=== PATIENT | female | born 1985 | race Caucasian/White ===

== ENCOUNTER → 2019-04-25 12:43 | Outpatient (CLI) | payer OTHER, MEDICAID, SELFPAY | PROVIDERS: Family Provider Family Medicine; PCP Family Medicine; Visit Provider Physician Assistant | DX: J02.9 Acute pharyngitis, unspecified (principal) | CPT/HCPCS: 87070 ==

== ENCOUNTER → 2019-05-20 16:23 | Outpatient (ROUT) | payer OTHER, MEDICAID, SELFPAY ==
[2019-05-22 08:41] LABS: COVID19 Sendout Not Detected (Not Detected)
== END ==
PROVIDERS: Family Provider Family Medicine; PCP Family Medicine; Visit Provider Physician Assistant
DX: R05 Cough (principal)
CPT/HCPCS: 87635

== ENCOUNTER 2023-07-04 14:15 | Emergency (ER) | payer OTHER, MEDICAID, SELFPAY ==
[2023-07-04 14:35] VITALS: BP 113/83; PULSE 85; RESP 19; TEMP 36.3; O2SAT 100; BMI 22.4
--- NOTE | 2023-07-04 14:46 | PC.NURSE ---
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 Today pt was feeling depressed, down and took hydroxyzine and cbd resulting in heart palpitations and chest pain with inspiration. Pt reports pain is 4/10 and comes in waves. Nausea comes in waves. Pt is concerned for her heart. HR 83 NSR, on business trainer.
== END 2023-07-04 15:40 | disposition left against medical advice (07) ==
PROVIDERS: Emergency Provider Emergency Medicine; Family Provider Family Medicine; PCP Family Medicine
DX: F31.9 Bipolar disorder, unspecified (principal); R00.2 Palpitations
CPT/HCPCS: 93005; 99282

== ENCOUNTER 2024-07-23 16:41 | Emergency (ER) | payer OTHER, SELFPAY ==
[2024-07-23] VITALS (13 sets, daily range): BP systolic 120–135; BP diastolic 60–88; PULSE 74–96; RESP 16–20; TEMP 37.4; O2SAT 94–100; BMI 23.8
--- NOTE | 2024-07-23 18:00 | ED.RECABL ---
HPI - Recheck/Abnormal Lab/Rx <Jayne Whaley PA-C - Last Filed: 07/23/24 19:23> General Chief Complaint: Recheck/Abnormal Lab/Rx Stated Complaint: pcp ref, high white blood count Time Seen by Provider: 07/23/24 16:59 Source: patient Mode of arrival: Family Vehicle History of Present Illness HPI narrative: Ms. Leal is a pleasant 38-year-old female with a past medical history of cholecystectomy who presents to the emergency department after being sent by urgent Care for white blood cell count of 17.7 in the setting of abdominal pain for appendicitis rule out. Patient states that last Wednesday, she developed fevers, chills, sinus pressure, cough. These symptoms have continued to worsen and she states that she is unable to sleep because her sinus congestion is so severe, she is constantly coughing/throwing up mucus. She also has a persistent productive cough. She feels constantly hot. She is also having lower abdominal pain, worse in the right lower quadrant and diarrhea however she states that ever since having her gallbladder removed she always has upset stomach and diarrhea whenever she is sick. She went to an outpatient urgent care and had COVID and flu testing that was negative, strep swab that was negative, chest x-ray that was negative, appendicitis ultrasound that was unable to visualize the appendix, negative test, and CBC and CMP that were within normal limits except for an elevated white blood cell count of 17.7 with elevation of neutrophils. Because of the leukocytosis in addition to her abdominal pain, she was sent here for further evaluation. Patient believes her symptoms are primarily upper respiratory in nature however her lower abdominal pain is not getting any better despite taking ibuprofen and Tylenol. She is allergic to all opioids. She denies chest pain, shortness of breath, lower extremity swelling, dysuria, ear pain. Related Data Home Medications ?Medication ?Instructions ?Recorded ?Confirmed MELATONIN (#MELATONIN) 1 mg PO PRN ##0 04/07/11 05/20/19 trazodone PO 04/25/19 05/20/19 Previous Rx's ?Medication ?Instructions ?Recorded amoxicillin 875 mg-potassium 1 tab PO BID #20 tabs 07/23/24 clavulanate 125 mg tablet Allergies Allergy/AdvReac Type Severity Reaction Status Date / Time From VICODIN Allergy Severe BREATHING Uncoded 07/23/24 16:51 DIFFICULTY WITH SWELLING From DILAUDID Allergy Mild EVERYTHING Uncoded 07/23/24 16:51 SWELLS UP Review of Systems <Jayne Whaley PA-C - Last Filed: 07/23/24 19:23> Review of Systems ROS Unobtainable: All systems reviewed & are unremarkable except as noted in HPI and below Patient History <Jayne Whaley PA-C - Last Filed: 07/23/24 19:23> Medical History URI (upper respiratory infection) Social History Smoking Status: Current every day smoker Smoking Status: Current every day smoker tobacco type: cigarettes Exam <Jayne Whaley PA-C - Last Filed: 07/23/24 19:23> Narrative Exam Narrative: GENERAL: 38 year old patient appears stated age. Well-developed patient, in no acute distress. HEAD: Atraumatic. Normocephalic. Tenderness to palpation of bilateral maxillary sinuses. EYES: No scleral icterus. No injection or drainage. ENT: Normal pearly bauman TMs bilaterally. Nose without bleeding, purulent drainage. Throat with mild erythema, NO tonsillar hypertrophy or exudate. Airway patent. NECK: Trachea midline. Cervical ROM intact. No palpable cervical lymphadenopathy. CARDIOVASCULAR: Regular rate and rhythm. RESPIRATORY: ?Nonlabored respirations. ?Speaking in clear, full sentences. ?Clear to auscultation. Breath sounds equal bilaterally. No wheezes, rales, or rhonchi. ? GASTROINTESTINAL: Abdomen soft, nondistended. She does have tenderness to palpation of the lower abdomen, most significant in the right lower quadrant. No rebound or guarding. Bowel sounds are present. NEURO: AOx3. ?Clear speech. ?Moves all 4 extremities appropriately. SKIN: No rash or erythema of visible areas Initial Vital Signs Initial Vital Signs: Vital Signs Temperature 99.3 F 07/23/24 16:51 Pulse Rate 89 07/23/24 16:51 Respiratory Rate 18 07/23/24 16:51 Blood Pressure 130/63 07/23/24 16:51 Pulse Oximetry 99 07/23/24 16:51 Oxygen Delivery Method Room Air 07/23/24 16:51 <Rush Carrillo MD - Last Filed: 07/24/24 02:58> Initial Vital Signs Initial Vital Signs: Vital Signs Temperature 99.3 F 07/23/24 16:51 Pulse Rate 89 07/23/24 16:51 Respiratory Rate 18 07/23/24 16:51 Blood Pressure 130/63 07/23/24 16:51 Pulse Oximetry 99 07/23/24 16:51 Oxygen Delivery Method Room Air 07/23/24 16:51 Course <Jayne Whaley PA-C - Last Filed: 07/23/24 19:23> Orders Ordered: ED Orders 07/23/24 18:14 XR chest 2V Stat 07/23/24 18:15 CT abdomen pelvis w con Stat 07/23/24 18:43 Complete Blood Count AUTO DIFF Stat Comprehensive Metabolic Panel Stat Lipase Stat Monotest Stat 07/23/24 19:32 Test Urine Stat Urine Microscopic Stat Discontinued Medications Amoxicillin/Clavulanate Potassium (Amoxicillin/Clav 875/125 Mg) 1 tab PO NOW ONE Stop: 07/23/24 20:17 Last Admin: 07/23/24 20:31 Dose: 1 tab Documented By: DIONICIO Sodium Chloride (Normal Saline 0.9%) 1,000 mls @ 1,000 mls/hr IV BOLUS ONE Stop: 07/23/24 19:14 Last Infusion: 07/23/24 21:09 Dose: Infused Documented By: Admin: 07/23/24 19:09 Dose: 1,000 mls/hr Documented By: MARLEN POTASSIUM CHLORIDE IN WATER (Potassium Cl 10 Meq/100 Ml Francia) 10 meq in 100 mls @ 100 mls/hr IV Q1H RAMONA Stop: 07/23/24 21:29 Last Infusion: 07/23/24 21:05 Dose: Infused Documented By: Admin: 07/23/24 20:32 Dose: 100 mls/hr Documented By: Infusion: 07/23/24 20:32 Dose: Infused Documented By: Admin: 07/23/24 19:40 Dose: 100 mls/hr Documented By: DIONICIO Ketorolac Tromethamine (Ketorolac 30 Mg/Ml Vial) 15 mg IV NOW ONE Stop: 07/23/24 18:15 Last Admin: 07/23/24 19:09 Dose: 15 mg Documented By: MARLEN Ondansetron HCl (Ondansetron 4 Mg/2 Ml Inj) 4 mg IV NOW ONE Stop: 07/23/24 18:15 Last Admin: 07/23/24 19:11 Dose: 4 mg Documented By: MARLEN Potassium Chloride (Potassium Chloride 20 Meq/15 Ml Udc) 40 meq PO NOW ONE Stop: 07/23/24 21:08 Last Admin: 07/23/24 21:16 Dose: Not Given Documented By: MARLEN Vital Signs Vital signs: Vital Signs - 8 hr 07/23/24 19:00 07/23/24 19:17 07/23/24 19:17 Pulse Rate 81 95 H Respiratory Rate Blood Pressure 120/71 Pulse Oximetry 98 98 Oxygen Delivery Method Room Air 07/23/24 19:28 07/23/24 19:28 07/23/24 19:30 Pulse Rate 89 Respiratory Rate Blood Pressure 121/82 125/77 Pulse Oximetry 97 Oxygen Delivery Method 07/23/24 19:30 07/23/24 19:49 07/23/24 19:49 Pulse Rate 85 96 H Respiratory Rate Blood Pressure 130/88 Pulse Oximetry 96 94 Oxygen Delivery Method 07/23/24 20:00 07/23/24 20:00 07/23/24 20:30 Pulse Rate 79 Respiratory Rate 18 Blood Pressure 123/81 135/79 Pulse Oximetry 100 Oxygen Delivery Method 07/23/24 20:30 07/23/24 21:00 07/23/24 21:00 Pulse Rate 79 74 Respiratory Rate 20 19 Blood Pressure 126/60 Pulse Oximetry 100 100 Oxygen Delivery Method <Rush Carrillo MD - Last Filed: 07/24/24 02:58> Orders Ordered: ED Orders 07/23/24 18:14 XR chest 2V Stat 07/23/24 18:15 CT abdomen pelvis w con Stat 07/23/24 18:43 Complete Blood Count AUTO DIFF Stat Comprehensive Metabolic Panel Stat Lipase Stat Monotest Stat 07/23/24 19:32 Test Urine Stat Urine Microscopic Stat Discontinued Medications Amoxicillin/Clavulanate Potassium (Amoxicillin/Clav 875/125 Mg) 1 tab PO NOW ONE Stop: 07/23/24 20:17 Last Admin: 07/23/24 20:31 Dose: 1 tab Documented By: NB Sodium Chloride (Normal Saline 0.9%) 1,000 mls @ 1,000 mls/hr IV BOLUS ONE Stop: 07/23/24 19:14 Last Infusion: 07/23/24 21:09 Dose: Infused Documented By: Admin: 07/23/24 19:09 Dose: 1,000 mls/hr Documented By: MARLEN POTASSIUM CHLORIDE IN WATER (Potassium Cl 10 Meq/100 Ml Francia) 10 meq in 100 mls @ 100 mls/hr IV Q1H RAMONA Stop: 07/23/24 21:29 Last Infusion: 07/23/24 21:05 Dose: Infused Documented By: Admin: 07/23/24 20:32 Dose: 100 mls/hr Documented By: Infusion: 07/23/24 20:32 Dose: Infused Documented By: Admin: 07/23/24 19:40 Dose: 100 mls/hr Documented By: DIONICIO Ketorolac Tromethamine (Ketorolac 30 Mg/Ml Vial) 15 mg IV NOW ONE Stop: 07/23/24 18:15 Last Admin: 07/23/24 19:09 Dose: 15 mg Documented By: MARLEN Ondansetron HCl (Ondansetron 4 Mg/2 Ml Inj) 4 mg IV NOW ONE Stop: 07/23/24 18:15 Last Admin: 07/23/24 19:11 Dose: 4 mg Documented By: MARLEN Potassium Chloride (Potassium Chloride 20 Meq/15 Ml Udc) 40 meq PO NOW ONE Stop: 07/23/24 21:08 Last Admin: 07/23/24 21:16 Dose: Not Given Documented By: MARLEN Vital Signs Vital signs: Vital Signs - 8 hr 07/23/24 19:00 07/23/24 19:17 07/23/24 19:17 Pulse Rate 81 95 H Respiratory Rate Blood Pressure 120/71 Pulse Oximetry 98 98 Oxygen Delivery Method Room Air 07/23/24 19:28 07/23/24 19:28 07/23/24 19:30 Pulse Rate 89 Respiratory Rate Blood Pressure 121/82 125/77 Pulse Oximetry 97 Oxygen Delivery Method 07/23/24 19:30 07/23/24 19:49 07/23/24 19:49 Pulse Rate 85 96 H Respiratory Rate Blood Pressure 130/88 Pulse Oximetry 96 94 Oxygen Delivery Method 07/23/24 20:00 07/23/24 20:00 07/23/24 20:30 Pulse Rate 79 Respiratory Rate 18 Blood Pressure 123/81 135/79 Pulse Oximetry 100 Oxygen Delivery Method 07/23/24 20:30 07/23/24 21:00 07/23/24 21:00 Pulse Rate 79 74 Respiratory Rate 20 19 Blood Pressure 126/60 Pulse Oximetry 100 100 Oxygen Delivery Method MDM - Recheck/Abnormal Lab/Rx <Jayne Whaley PA-C - Last Filed: 07/23/24 19:23> Medical Records Attestation: I reviewed the patient's medical records. Medical records narrative: Reviewed records from today's urgent care visit on patient's cell phone, we are unable to get the formal reports. Lab Data 07/23/24 18:43 07/23/24 18:43 Labs: Lab Results 07/23/24 07/23/24 Range/Units 18:43 19:32 WBC 15.9 H (4.5-11.0) X10^3/uL RBC 5.01 (4.0-5.2) X10^6/uL Hgb 14.7 (12.0-16.0) g/dL Hct 41.4 (36-46) % MCV 82.5 (80-100) fL MCH 29.3 (26-34) PG MCHC 35.5 (30-36) % RDW 13.2 (11.6-14.8) % Plt Count 302 (150-400) X10^3/uL Neut % (Auto) 79.4 H (50-75) % Lymph % (Auto) 14.1 L (25-40) % [place] % (Auto) 5.3 (3-14) % Eos % (Auto) 0.6 L (2-4) % Baso % (Auto) 0.6 (0-2) % Neut # (Auto) 30315 H (8179-2484) /uL Lymph # (Auto) 2200 (8333-8869) /uL [place] # (Auto) 800 (0-900) /uL Eos # (Auto) 100 (0-450) /uL Baso # (Auto) 100 (0-100) /uL Sodium 137 (137-145) mmol/L Potassium 3.0 L (3.4-5.1) mmol/L Chloride 103 (98-107) mmol/L Carbon Dioxide 25 (22-32) mmol/L BUN 7 (7-17) mg/dL Creatinine 0.48 L (0.52-1.04) mg/dL Estimated GFR > 60 (>60) mL/min BUN/Creatinine Ratio 14.6 (6-22) Glucose 93 (70-99) mg/dL Calcium 9.0 (8.4-10.2) mg/dL Total Bilirubin 1.1 (0.2-1.3) mg/dL AST 21 (14-36) IU/L ALT 13 (<35) IU/L Alkaline Phosphatase 79 (38-126) U/L Total Protein 7.7 (6.3-8.2) g/dL Albumin 4.5 (3.5-5.0) g/dL Globulin 3.2 (1.7-4.1) g/dL Albumin/Globulin Ratio 1.4 (1.0-2.8) Lipase 31 (23-300) U/L Urine RBC 1-5/hpf (0-5/HPF) Urine WBC 0-1/hpf (0-5/HPF) Ur Squamous Epith Cells 0-1 /hpf (0-5/HPF) Urine Bacteria Occasional (0-1) (None) Urine Mucus 4+ H (Negative) Urine Yeast 1-5/hpf H (None) Ur Culture Indicated? Cult not indicated Vol Urine Centrifuged 10ml (spun) Urine Test Negative (Negative) Monoscreen Negative (Negative) Point of Care Testing Test Results Negative Urine Dip Bedside Urine Glucose Negative Bedside Urine Bilirubin - Negative Bedside Urine Ketone ++ 40 Urine Specific [place] 1.025 Bedside Urine Occult Blood ++ Bedside Urine pH 6 Bedside Urine Protein +/- 15 Bedside Urine Urobilinogen - Negative Bedside Urine Nitrite - Negative Bedside Urine Leukocytes - Negative Esterase MDM Narrative Medical decision making narrative: 38-year-old female with a past medical history of cholecystectomy who presents to the emergency department after being sent by urgent Care for white blood cell count of 17.7 in the setting of abdominal pain for appendicitis rule out. Differential diagnosis includes but is not limited to sinusitis, viral URI, pharyngitis, pneumonia, appendicitis, colitis, diverticulitis, gastroenteritis, UTI, etc. On exam the patient is in no acute distress, nontoxic appearing, vital signs appropriate. She does have abdominal tenderness across the lower abdomen with no rebound or guarding. Mild posterior oropharyngeal erythema present, bilateral maxillary sinus tenderness. Reviewed the results from her urgent care visit today on her phone which revealed an abdominal ultrasound, appendix was unable to be visualized, and a CBC revealing white blood cell count of 17.7. Negative strep swab, COVID swab, flu swab. Will obtain CBC, CMP, lipase, UA, CT abdomen pelvis with IV contrast. Chest x-ray. Will treat with fluids Zofran and Toradol. Discussed with the patient that due to the duration of her sinusitis, I do believe she warrants antibiotics however it is important to complete evaluation of her abdominal pain as well. Labs reveal WBC count 15.9, hemoglobin 14.7 hematocrit 41.4. Neutrophils elevated 79.4%. Potassium decreased at 3.0, BUN normal 7 creatinine 0.48. Normal LFTs. Normal lipase 31. [place] screen negative. Chest x-ray negative. 1900: Due to shift change, discussed case with attending ED. Pt waiting to go to [facility] at this time. She is aware and agreeable to transfer of care. <Rush Carrillo MD - Last Filed: 07/24/24 02:58> Lab Data Labs: Lab Results 07/23/24 07/23/24 Range/Units 18:43 19:32 WBC 15.9 H (4.5-11.0) X10^3/uL RBC 5.01 (4.0-5.2) X10^6/uL Hgb 14.7 (12.0-16.0) g/dL Hct 41.4 (36-46) % MCV 82.5 (80-100) fL MCH 29.3 (26-34) PG MCHC 35.5 (30-36) % RDW 13.2 (11.6-14.8) % Plt Count 302 (150-400) X10^3/uL Neut % (Auto) 79.4 H (50-75) % Lymph % (Auto) 14.1 L (25-40) % [place] % (Auto) 5.3 (3-14) % Eos % (Auto) 0.6 L (2-4) % Baso % (Auto) 0.6 (0-2) % Neut # (Auto) 21109 H (6904-6931) /uL Lymph # (Auto) 2200 (1139-4918) /uL [place] # (Auto) 800 (0-900) /uL Eos # (Auto) 100 (0-450) /uL Baso # (Auto) 100 (0-100) /uL Sodium 137 (137-145) mmol/L Potassium 3.0 L (3.4-5.1) mmol/L Chloride 103 (98-107) mmol/L Carbon Dioxide 25 (22-32) mmol/L BUN 7 (7-17) mg/dL Creatinine 0.48 L (0.52-1.04) mg/dL Estimated GFR > 60 (>60) mL/min BUN/Creatinine Ratio 14.6 (6-22) Glucose 93 (70-99) mg/dL Calcium 9.0 (8.4-10.2) mg/dL Total Bilirubin 1.1 (0.2-1.3) mg/dL AST 21 (14-36) IU/L ALT 13 (<35) IU/L Alkaline Phosphatase 79 (38-126) U/L Total Protein 7.7 (6.3-8.2) g/dL Albumin 4.5 (3.5-5.0) g/dL Globulin 3.2 (1.7-4.1) g/dL Albumin/Globulin Ratio 1.4 (1.0-2.8) Lipase 31 (23-300) U/L Urine RBC 1-5/hpf (0-5/HPF) Urine WBC 0-1/hpf (0-5/HPF) Ur Squamous Epith Cells 0-1 /hpf (0-5/HPF) Urine Bacteria Occasional (0-1) (None) Urine Mucus 4+ H (Negative) Urine Yeast 1-5/hpf H (None) Ur Culture Indicated? Cult not indicated Vol Urine Centrifuged 10ml (spun) Urine Test Negative (Negative) Monoscreen Negative (Negative) Point of Care Testing Test Results Negative Urine Dip Bedside Urine Glucose Negative Bedside Urine Bilirubin - Negative Bedside Urine Ketone ++ 40 Urine Specific [place] 1.025 Bedside Urine Occult Blood ++ Bedside Urine pH 6 Bedside Urine Protein +/- 15 Bedside Urine Urobilinogen - Negative Bedside Urine Nitrite - Negative Bedside Urine Leukocytes - Negative Esterase Imaging Data CT scan - abdomen/pelvis: Radiologist's Impression: Close Abdomen/Pelvis CT (Signed) Trevor Nobles - 07/23/24 Chest X-Ray (Signed) Charles Armendariz - 07/23/24 Launch?[address] [address] [address] Scan Report Signed Patient: Jennifer Leal MR#: [id number] : 1985 Acct:[id number] Age/Sex: 38 / F Date of Service: 07/23/24 Loc: ED Accession Number: [id number] Procedure: CT abdomen pelvis w con Ordering Provider: Jayne Whaley PA-C PROCEDURE: CT ABDOMEN PELVIS W CON INDICATIONS: lower abd pain; rlq TECHNIQUE: After the administration of intravenous contrast, axial sections acquired from the lung bases to the pubic symphysis. Coronal and sagittal reformats were performed. For radiation dose reduction, the following was used: automated exposure control, adjustment of mA and/or kV according to patient size. COMPARISON: None. FINDINGS: Image quality: Diagnostic. Lower Chest: No significant findings. ABDOMEN: Liver: No solid mass. Gallbladder: Status post cholecystectomy, Biliary ducts: No biliary dilation. Pancreas: No ductal dilation. Spleen: Size is within normal limits. Adrenal Glands: No adrenal nodules. Kidneys and Ureters: No hydronephrosis. No solid mass. No complex renal cystic lesion which requires follow up. Stomach and Bowel: Normal colonic caliber, without significant wall thickening. The appendix is normal. The rectum is decompressed, questionable mild wall thickening. Prominent intramural vascular structures. Peritoneum: No abnormal intraperitoneal fluid. No free air. Ventral Wall: No significant ventral hernia. Abdominal Nodes: No retroperitoneal or mesenteric adenopathy by size criteria. Vessels: Aorta and inferior vena cava are normal in size. PELVIS: Pelvic Organs: Unremarkable. Bladder: No bladder wall thickening, accounting for underdistention. Pelvic Nodes: No enlarged lymph nodes. Miscellaneous: No inguinal hernias are seen. Bones: No aggressive osseous abnormality. IMPRESSION: 1. Probable internal hemorrhoids, with possible associated mild proctitis. 2. No definite acute intra-abdominal abnormality otherwise. Dictated by: Trevor Nobles M.D. on 07/23/2024 at 19:53 Approved by: Trevor Nobles M.D. on 07/23/2024 at 19:59 MDM Narrative Medical decision making narrative: 38-year-old female with a past medical history of cholecystectomy who presents to the emergency department after being sent by urgent Care for white blood cell count of 17.7 in the setting of abdominal pain for appendicitis rule out. Differential diagnosis includes but is not limited to sinusitis, viral URI, pharyngitis, pneumonia, appendicitis, colitis, diverticulitis, gastroenteritis, UTI, etc. On exam the patient is in no acute distress, nontoxic appearing, vital signs appropriate. She does have abdominal tenderness across the lower abdomen with no rebound or guarding. Mild posterior oropharyngeal erythema present, bilateral maxillary sinus tenderness. Reviewed the results from her urgent care visit today on her phone which revealed an abdominal ultrasound, appendix was unable to be visualized, and a CBC revealing white blood cell count of 17.7. Negative strep swab, COVID swab, flu swab. We will obtain CBC, CMP, lipase, UA, CT abdomen pelvis with IV contrast. Chest x-ray. Will treat with fluids Zofran and Toradol. Discussed with the patient that due to the duration of her sinusitis, I do believe she warrants antibiotics however it is important to complete evaluation of her abdominal pain as well. 07/23/241914Gerardo. Signout from RADHA Saenz. 38-year-old female with one-week duration of upper respiratory infection symptoms, abdominal discomfort, diarrhea, sent from urgent care after ultrasound performed unable to see appendix. Patient has white blood cell count 19622. COVID flu negative. HCG negative. Strep screen negative. CT abdomen and pelvis ordered. Assumed care. CT abdomen and pelvis shows internal hemorrhoids, mild proctitis changes. No appendicitis or colitis or obstructive changes or other acute changes mentioned. See radiology report. We will give oral dose of Augmentin which would cover proctitis, as well as clinical sinusitis already suspected. Will send prescription for Augmentin 10 day course to her pharmacy. Recheck symptoms advised with the regular provider. Return precautions discussed. Discharge Plan Departure Patient Disposition: Home Clinical Impression: Abdominal pain, Proctitis, Hypokalemia Activity Restrictions/Additional Instructions: Recent upper respiratory infection symptoms. Abdominal pain as well. Blood testing showed elevated white blood cell count 45225. test negative. Ultrasound did not visualize the appendix that was apparently of concern. CT abdomen and pelvis imaging showed no evidence for appendicitis, did show inflammatory changes in the distal colon, concern for proctitis. This can be treated with antibacterials with Augmentin, 1st dose now, prescription sent to your pharmacy. You might also have had elevated white blood cell count and sinusitis, Augmentin which is being prescribed for proctitis would be good choice for coverage for sinusitis if it is incidentally also present. Take antibiotics as directed. Take Tylenol and or Motrin as needed for pain fever. Recheck symptoms with your regular doctor if not improving in the next couple of days. Return to this/nearest emergency department for any change worsening symptoms or any concerns prior. Blood tests showed low potassium level, oral potassium repletion given. Consider recheck of potassium level as an outpatient with your regular doctor next week. Prescriptions: New amoxicillin-pot clavulanate 875-125 mg tablet 1 tab PO BID Qty: 20 0RF No Action trazodone PO MELATONIN (#MELATONIN) 1 mg PO PRN Qty: 0 Referrals: Argelia Wolff MD [Primary Care Provider, Family Practice] Stand Alone Forms: Patient Portal/API
--- NOTE | 2024-07-23 18:14 | DI.RAD.S_ITS ---
PROCEDURE: XR CHEST 2V INDICATIONS: URI sx, productive cough; fevers chills TECHNIQUE: 2 views of the chest were acquired. COMPARISON: None. FINDINGS: Surgical changes and devices: Right upper quadrant surgical clips. Lungs and pleura: Lungs are clear. No pleural effusions or pneumothorax. Mediastinum: Mediastinal contours are normal. Heart size is normal. Bones and chest wall: No suspicious bony abnormalities. Soft tissues appear unremarkable. IMPRESSION: No acute cardiopulmonary abnormality is seen. Approved by: Charles Armendariz M.D. on 07/23/2024 at 18:53
--- NOTE | 2024-07-23 18:15 | DI.CT.S_ITS ---
PROCEDURE: CT ABDOMEN PELVIS W CON INDICATIONS: lower abd pain; rlq TECHNIQUE: After the administration of intravenous contrast, axial sections acquired from the lung bases to the pubic symphysis. Coronal and sagittal reformats were performed. For radiation dose reduction, the following was used: automated exposure control, adjustment of mA and/or kV according to patient size. COMPARISON: None. FINDINGS: Image quality: Diagnostic. Lower Chest: No significant findings. ABDOMEN: Liver: No solid mass. Gallbladder: Status post cholecystectomy, Biliary ducts: No biliary dilation. Pancreas: No ductal dilation. Spleen: Size is within normal limits. Adrenal Glands: No adrenal nodules. Kidneys and Ureters: No hydronephrosis. No solid mass. No complex renal cystic lesion which requires follow up. Stomach and Bowel: Normal colonic caliber, without significant wall thickening. The appendix is normal. The rectum is decompressed, questionable mild wall thickening. Prominent intramural vascular structures. Peritoneum: No abnormal intraperitoneal fluid. No free air. Ventral Wall: No significant ventral hernia. Abdominal Nodes: No retroperitoneal or mesenteric adenopathy by size criteria. Vessels: Aorta and inferior vena cava are normal in size. PELVIS: Pelvic Organs: Unremarkable. Bladder: No bladder wall thickening, accounting for underdistention. Pelvic Nodes: No enlarged lymph nodes. Miscellaneous: No inguinal hernias are seen. Bones: No aggressive osseous abnormality. IMPRESSION: 1. Probable internal hemorrhoids, with possible associated mild proctitis. 2. No definite acute intra-abdominal abnormality otherwise. Dictated by: Trevor Nobles M.D. on 07/23/2024 at 19:53 Approved by: Trevor Nobles M.D. on 07/23/2024 at 19:59
[2024-07-23 19:05] LABS: Add Manual Diff / Slide Review NO; Basophils Absolute Auto 100 /uL (0-100); Basophils Percent Auto 0.6 % (0-2); Eosinophils Absolute Auto 100 /uL (0-450); Eosinophils Percent Auto 0.6 % (2-4); Hematocrit 41.4 % (36-46); Hemoglobin 14.7 g/dL (12.0-16.0); Lymphocytes Absolute Auto 2200 /uL (1100-4500); Lymphocytes Percent Auto 14.1 % (25-40); Mean Corpuscular HGB Conc 35.5 % (30-36); Mean Corpuscular Hemoglobin 29.3 PG (26-34); Mean Corpuscular Volume 82.5 fL (80-100); Monocytes Absolute Auto 800 /uL (0-900); Monocytes Percent Auto 5.3 % (3-14); Neutrophils Absolute Auto 12600 /uL (1500-7000); Neutrophils Percent Auto 79.4 % (50-75); Platelet Count 302 X10^3/uL (150-400); Red Blood Cell Count 5.01 X10^6/uL (4.0-5.2); Red Cell Distribution Width 13.2 % (11.6-14.8); White Blood Cell Count 15.9 X10^3/uL (4.5-11.0)
[2024-07-23 19:06] LABS: Monotest Negative (Negative)
[2024-07-23] MEDS: KETOROLAC 30 MG/ML VIAL 15 MG IV (19:09)
[2024-07-23] MEDS: SODIUM CHLORIDE 0.9% 1,000 ML 1000 ML IV (19:09)
[2024-07-23] MEDS: ONDANSETRON 4 MG/2 ML INJ IV (19:11)
[2024-07-23 19:12] LABS: Alanine Aminotransferase 13 IU/L (<35); Albumin 4.5 g/dL (3.5-5.0); Albumin Globulin Ratio 1.4 (1.0-2.8); Alkaline Phosphatase 79 U/L (38-126); Aspartate Aminotransferase 21 IU/L (14-36); BUN Creatinine Ratio 14.6 (6-22); Bilirubin Total 1.1 mg/dL (0.2-1.3); Blood Urea Nitrogen 7 mg/dL (7-17); Carbon Dioxide 25 mmol/L (22-32); Chloride 103 mmol/L (98-107); Estimated Glomerular Filt Rate > 60 mL/min (>60); Globulin 3.2 g/dL (1.7-4.1); Glucose 93 mg/dL (70-99); HEMOLYSIS < 15 (0-50); Lipase 31 U/L (23-300); Sodium 137 mmol/L (137-145); Total Protein 7.7 g/dL (6.3-8.2)
[2024-07-23] MEDS: POTASSIUM CHLORIDE IN WATER 10 MEQ/100 ML PIGGYBACK 100 MEQ IV ×2 (19:40→20:32)
[2024-07-23 19:43] LABS: Pregnancy Test Urine Negative (Negative)
[2024-07-23 19:49] LABS: Urine Volume 10mL (spun)
[2024-07-23 19:50] LABS: Bacteria Urine Occasional (0-1); Culture Indicated Urine Cult Not Indicated; Mucus Urine 4+ (Negative); RBC Urine 1-5/HPF (0-5/HPF); Squamous Epithelial Cell Urine 0-1 /HPF (0-5/HPF); WBC Urine 0-1/HPF (0-5/HPF)
[2024-07-23] MEDS: AMOXICILLIN/CLAV 875/125 MG 1 TAB PO (20:31)
--- NOTE | 2024-07-23 21:07 | PC.NURSE ---
Pt reports lungs burning after start of IV potassium. Provider Gerardo made aware. OK to discontinue IV potassium. Pt will go home with PO potassium prescription. IV potassium stopped and discontinued as per verbal direction of provider.
--- NOTE | 2024-07-23 21:23 | PC.NURSE ---
This RN goes to medicate patient with PO potassium. Pt asks about potential side effects. Pt educated on some common side effects as listed in lexicomp. Pt declines PO potassium and states, I'm going to eat lots of avocadoes. This RN gives education on importance of getting her potassium to a normal level and the risks of low potassium. Pt still declines medication at this time.
== END 2024-07-23 21:12 | disposition home or self-care (01) ==
PROVIDERS: Physician Assistant; Emergency Provider Emergency Medicine; Family Provider Family Medicine; PCP Family Medicine
DX: R10.9 Unspecified abdominal pain (principal); K62.89 Other specified diseases of anus and rectum; E87.6 Hypokalemia; R50.9 Fever, unspecified
CPT/HCPCS: 36415; 71046; 74177; 80053; 81003; 81015; 81025; 83690; 85025; 86318; 96365; 96375; 99284; J1885; J2405; Q9967

== ENCOUNTER 2024-08-31 19:47 | Emergency (ER) | payer OTHER, SELFPAY ==
[2024-08-31 19:55] VITALS: BP 122/59; PULSE 96; RESP 16; TEMP 37; O2SAT 98; BMI 21.6
== END 2024-08-31 20:27 | disposition left against medical advice (07) ==
PROVIDERS: Emergency Provider Emergency Medicine; Family Provider Family Medicine; PCP Family Medicine
CPT/HCPCS: 99281